=== PATIENT | female | born 1970 | race Caucasian/White ===

== ENCOUNTER 2018-05-26 09:03 | Day surgery (SDC) | payer OTHER, MEDICAID, SELFPAY ==
[2018-05-19 10:55] VITALS: BMI 23.0
[2018-05-26] VITALS (12 sets, daily range): BP systolic 80–97; BP diastolic 43–54; PULSE 62–94; RESP 12–16; TEMP 36.2–36.8; O2SAT 94–100; BMI 23.0
--- NOTE | 2018-05-26 | PATH_ITS ---
[facility] [place] Accession Number: [id number] . 01 Material submitted: . BILATERAL FALLOPIAN TUBES . 02 Diagnosis: Bilateral Fallopian Tubes, Procedure Not Specified: Fallopian tubes x2 with no significant histomorphoogic abnormality. MRV/05/29/2018 . 02 Electronically signed: . Lorraine Mccain MD, Pathologist NPI- [id number] . 01 Gross description: . Received in formalin, labeled bilateral fallopian tubes, are two nonfimbriated fallopian tubes (tube #1: length-5.5 cm, diameter-1.0 cm; tube #2: length-6.0 cm, diameter-0.8 cm) with gutierrez-pink smooth shiny serosa and quiroz dilated lumens containing clear colorless fluid. Section code: (A1) fallopian tube #1, textiles sales representative serial sections; (A2) fallopian tube #1, distal end, bivalved; (A3) fallopian tube #2, textiles sales representative serial sections; (A4) fallopian tube #2, distal end, bivalved. ([id number]) /MRV . 02 Pathologist provided ICD-10: Z30.2 . 02 CPT . 207762 Performed at: 01 [facility] [address], [place], [place] [id number] MD Cole Olivera MD Phone: [phone] Performed at: 02 [facility] [address] [place], [place] [id number] MD Dayana Camp MD Phone: [phone]
[2018-05-26] MEDS: LACTATED RINGERS 1,000 ML 42 ML IV ×2 (10:01→13:24)
--- NOTE | 2018-05-26 11:01 | PM.PREOP ---
Pre-operative Note Interval Note History & Physical reviewed/Exam performed by Physician: Yes Changes to H&P: No
--- NOTE | 2018-05-26 11:36 | SUR.OPER ---
Lithotomy on padded OR bed, head on pillow, arms secured on padded arm boards at <90 degrees abduction. Legs secured in padded yellow fins stirrups.
[2018-05-26] MEDS: ACETAMINOPHEN IV 1,000 MG/100 ML VIAL 400 MG IV (11:40)
[2018-05-26] MEDS: BUPIVACAINE 0.5% W/ EPI (PF) VIAL 30 ML INJ (11:43)
[2018-05-26] MEDS: LACTATED RINGERS 1,000 ML 100 ML IV (12:15)
[2018-05-26] MEDS: fentaNYL 100 MCG/2 ML INJ 50 MCG IV ×2 (12:18→12:35)
[2018-05-26] MEDS: ONDANSETRON 4 MG/2 ML INJ IV (12:41)
[2018-05-26] MEDS: HYDROMORPHONE 2 MG INJ 0.5 MG IV ×2 (12:50→12:55)
--- NOTE | 2018-05-26 14:44 | SUR.PHASEII ---
Pt transferred to [facility] independently. Shortly after transfer she reported that she felt like she might throw up. Emesis bag provided noting 500ml of emesis. I spoke with pt about staying for a little longer and she declined insisting that she wanted to catch the 1510 ferry back to [place]. She stated I feel fine now and I did the same thing after my colonoscopy and it made me feel better. I mentioned that I was discharging her against my wishes and she said she knew that but it was ok. I escorted her by [facility] to ED entrance and she transferred independently to her friends car.
--- NOTE | 2018-06-01 16:25 | PM.GYNOP.1 ---
Operative Date/Time/Diagnoses Date of procedure: 05/26/18 Time of procedure: 12:45 Pre-op diagnosis: Desires Permanent sterilization Pelvic pain Post-op diagnosis: same Procedure: Procedures Operation Date: 05/26/18 11:00 Actual Procedures Side Surgeon p Laparoscopic Salpingectomy,LYSIS OF ADHESIONS Bilateral Odessa Santos MD Indications: Pelvic pain Desires permanent sterilization Surgeon: Odessa Santos Anesthesia Type: General Operative Notes Findings: 7 week size anteverted uterus Hydrosalpinx on the right tube Normal ovaries bilaterally Adhesions between the uterus, tube, and left ovary Normal appendix Normal liver and gallbladder Closure Type: primary Specimen(s): left tube and right tube Estimated blood loss (mL): 5 Blood products transfused: none Procedure in detail: After informed consent was obtained, the patient was taken to the operating room where she was placed in the dorsal supine position. After adequate general endotracheal anesthesia was achieved, she was placed in the dorsal lithotomy position, and prepped and draped in the usual sterile fashion. A time-out was performed. A bivalve speculum was placed into the vagina, and the anterior lip of the cervix grasped with a single-tooth tenaculum. The cervical os was sequentially dilated until the Zumi uterine manipulator could pass easily into the endometrial cavity. The single-tooth tenaculum was removed from the anterior lip of the cervix. The bivalve speculum was removed from the vagina. Attention was then turned to the abdomen where 6 cc of 0.5% Marcaine with epinephrine were injected in the umbilical fold. A 5 mm incision was made. The Veress needle was placed into the peritoneal cavity, and its placement confirmed by aspiration and drop test. The abdominal cavity was insufflated with 3 L of CO2. Veress needle was removed, and a 5 mm trocar was placed without difficulty. The initial inspection of the pelvis and abdomen revealed the findings noted above. 2 other 5 mm incisions were made midway between the pubic symphysis and umbilicus, 4 cm lateral to the midline, after 6 cc of 0.5% Marcaine with epinephrine were injected. Two 5 mm trocars were placed under direct visualization. The right tube was grasped with an atraumatic grasper. Using the PlasmaKinetic was settings at 40 w, the mesosalpinx was cauterized and cut all the way down to the cornu of the uterus. The tube was amputated from the uterus using the PlasmaKinetic with cautery and cut. The tube was removed through the lateral trocar. On the left side there were adhesions between the uterus, tube, and left ovary. The Endo jean were used to carefully take down the adhesions. The tube was then grasped with an atraumatic grasper. Using the PlasmaKinetic was settings at 40 w, the mesosalpinx was cauterized and cut all the way down to the cornu of the uterus and then across the tube. The tube was removed through the left lateral trocar. The pelvis was irrigated there was no bleeding noted. The instruments were removed from the abdomen. The CO2 was allowed to escape. The incisions were repaired with 4 0 undyed Vicryl in a subcuticular fashion. Steri-Strips, 2 x 2, and op site were placed. The Zumi uterine manipulator was removed from the uterus. Sponge, lap, and instrument counts were correct x2. The patient tolerated the procedure well, and was taken to PACU in stable condition. Complications: none Post-operative Condition: stable Disposition: PACU Plan for aftercare: Home after recovery
== END 2018-05-26 14:40 | disposition home or self-care (01) ==
PROVIDERS: PCP Family Medicine; Visit Provider Obstetrics & Gynecology
PROC: 0UT74ZZ Resection of Bilateral Fallopian Tubes, Percutaneous Endoscopic Approach (ICD-10-PCS; CPT 58661; principal; 2018-05-26 11:00)
DX: Z30.2 Encounter for sterilization (principal); N70.11 Chronic salpingitis; Z87.891 Personal history of nicotine dependence
CPT/HCPCS: 58661; J0131; J1100; J1170; J1885; J2250; J2405; J2704; J3010

== ENCOUNTER → 2021-06-19 08:56 | Outpatient (CLI) | payer OTHER, SELFPAY ==
[2021-06-22 10:39] LABS: Hematocrit 37.2 % (36-46); Hemoglobin 12.9 g/dL (12.0-16.0); Mean Corpuscular HGB Conc 34.6 % (30-36); Mean Corpuscular Hemoglobin 33.3 PG (26-34); Mean Corpuscular Volume 96.2 fL (80-100); Red Blood Cell Count 3.86 X10^6/uL (4.0-5.2); Red Cell Distribution Width 12.7 % (11.6-14.8); White Blood Cell Count 4.2 X10^3/uL (4.5-11.0)
[2021-06-22 10:40] LABS: Basophils Percent Auto 0.9 % (0-2); Eosinophils Percent Auto 0.9 % (2-4); Lymphocytes Percent Auto 45.4 % (25-40); Monocytes Percent Auto 15.7 % (3-14); Neutrophils Percent Auto 37.1 % (50-75); Platelet Count 201 X10^3/uL (150-400)
[2021-06-22 10:41] LABS: Basophils Absolute Auto 0 /uL (0-100); Eosinophils Absolute Auto 0 /uL (0-450); Erythrocyte Sedimentation Rate 12 MM/HR (0-20)
[2021-06-22 10:42] LABS: Add Manual Diff / Slide Review NO
[2021-06-22 11:00] LABS: Alanine Aminotransferase 21 IU/L (<35); Albumin 4.4 g/dL (3.5-5.0); Albumin Globulin Ratio 1.5 (1.0-2.8); Alkaline Phosphatase 34 U/L (38-126); Aspartate Aminotransferase 32 IU/L (14-36); Bilirubin Total 0.3 mg/dL (0.2-1.3); Blood Urea Nitrogen 12 mg/dL (7-17); C-Reactive Protein Quant < 0.5 mg/dL (<1.0); Calcium 9.2 mg/dL (8.4-10.2); Carbon Dioxide 27 mmol/L (22-32); Chloride 105 mmol/L (98-107); Cholesterol 186 mg/dL (140-199); Estimated Glomerular Filt Rate > 60 mL/min (>60); Globulin 2.9 g/dL (1.7-4.1); Glucose 93 mg/dL (70-100); HDL Cholesterol 64 mg/dL (40-60); HEMOLYSIS < 15 (0-50); LDL Cholesterol Calculated 102 mg/dL (<100); Potassium 4.2 mmol/L (3.4-5.1); Sodium 140 mmol/L (137-145); Total Protein 7.3 g/dL (6.3-8.2); Triglycerides 101 mg/dL (35-150)
[2021-06-22 11:01] LABS: Rheumatoid Factor < 8.6 IU/mL (<12.0)
[2021-06-22 11:16] LABS: Free T4, Direct Thyroxine 1.13 ng/dL (0.78-2.19)
[2021-06-22 11:30] LABS: TSH w/ Reflex to FT4 2.22 uIU/mL (0.47-4.68)
[2021-06-22 17:00] LABS: Lymphocytes Absolute Auto 1900 /uL (1100-4500); Neutrophils Absolute Auto 1600 /uL (1500-7000)
[2021-06-22 17:01] LABS: Monocytes Absolute Auto 700 /uL (0-900)
== END ==
PROVIDERS: PCP Family Medicine; Visit Provider Physician Assistant
DX: Z12.83 Encounter for screening for malignant neoplasm of skin (principal); Z12.31 Encounter for screening mammogram for malignant neoplasm of breast; Z86.39 Personal history of other endocrine, nutritional and metabolic disease
CPT/HCPCS: 80053; 80061; 84439; 84443; 85025; 85651; 86140; 86430